=== PATIENT | female | born 1985 | race Caucasian/White ===

== ENCOUNTER 2017-07-15 18:37 | Emergency (ER) | payer OTHER ==
--- NOTE | 2017-07-15 18:45 | EDPHY ---
H & P Time Seen by Provider: 07/15/17 18:45 HPI/ROS: HPI CHIEF COMPLAINT: Right Knee pain. HISTORY OF PRESENT ILLNESS: Very pleasant 32 year old female, presents emergency room with right knee pain. Patient was playing volleyball last night around 9:00 p.m. And turned and heard a pop and had pain to the right lateral aspect of her knee. Since then she has had ongoing pain. She is able to bear weight. She denies any numbness or tingling or focal weakness. Denies any significant swelling. When she ranges her knee she has pain on the lateral aspect of her right knee. No clicking. Past Medical History: Denies medical history Past Surgical History: Denies surgical history Social History: Denies daily use drugs alcohol tobacco. Family History: Noncontributory ROS REVIEW OF SYSTEMS: A comprehensive 10 point review of systems is otherwise negative aside from elements mentioned in the history of present illness. Exam Constitutional triage nursing summary reviewed, vital signs reviewed, awake/ alert. Eyes normal conjunctivae and sclera, EOMI, PERRLA. HENT normal inspection, atraumatic, moist mucus membranes, no epistaxis, neck supple/ no meningismus, no raccoon eyes. Respiratory clear to auscultation bilaterally, normal breath sounds, no respiratory distress, no wheezing. Cardiovascular rate normal, regular rhythm, no murmur, no edema, distal pulses normal. Gastrointestinal soft, non-tender, no rebound, no guarding, normal bowel sounds, no distension, no pulsatile mass. Genitourinary no CVA tenderness. Musculoskeletal right lower extremity: The right lower extremity is neurovascularly intact good distal pulse good cap refill, she has range of motion of the right knee but has pain. She is most focally tender on the right lateral aspect of her right knee over her lateral collateral ligament and right lateral meniscus, no clicking, no significant swelling on exam, no midline vertebral tenderness, full range of motion, no calf swelling, no tenderness of extremities, no meningismus, good pulses, neurovascularly intact. Skin pink, warm, & dry, no rash, skin atraumatic. Neurologic awake, alert and oriented x 3, AAOx3, moves all 4 extremities equally, motor intact, sensory intact, CN II-XII intact, normal cerebellar, normal vision, normal speech. Psychiatric normal mood/affect. Heme/Lymph/Immune no lymphadenopathy. Differential Diagnosis: Includes but is not limited to in a particular order meniscal injury, lateral collateral ligament injury, bony abnormality, bony contusion, bony fracture. Medical Decision Making: Plan for this patient x-ray right knee, knee immobilizer crutches, anti-inflammatory pain medicine and ice recommend referral to Orthopedics. Re-evaluation: X-ray of the knee unremarkable for acute bony abnormality. Recommend patient follows up with Orthopedics. Knee immobilizer crutches for comfort and care. Ibuprofen, ice elevation. Most likely has a meniscal injury versus ligamentous injury. Recommend orthopedic follow-up. She understands. Source: Patient Constitutional: Initial Vital Signs Temperature (C) 36.7 C 07/15/17 18:52 Heart Rate 61 07/15/17 18:52 Respiratory Rate 20 07/15/17 18:52 Blood Pressure 137/94 H 07/15/17 18:52 O2 Sat (%) 97 07/15/17 18:52 O2 Delivery Mode Room Air Allergies/Adverse Reactions: No Known Allergies Allergy (Unverified 07/15/17 18:50) Home Medications: Medication Instructions Recorded Estrogen,Con/M-Progest Acet 07/15/17 [Premphase 0.625-5 mg Tablet] Medical Decision Making - Diagnostics Imaging Results: Imaging Impressions Knee X-Ray 07/15/17 18:57 Impression: Negative for fracture. - Data Points Medications Given: Discontinued Medications Ibuprofen (Motrin) 800 mg PO EDNOW ONE Stop: 07/15/17 18:58 Last Admin: 07/15/17 19:01 Dose: 800 mg Departure - Departure Disposition: Home, Routine, Self-Care Clinical Impression: Right knee sprain Qualifiers: Encounter type: initial encounter Involved ligament of knee: unspecified ligament Qualified Code(s): S83.91XA - Sprain of unspecified site of right knee , initial encounter Condition: Good Instructions: Knee Sprain (ED) Additional Instructions: 1. Ice your knee 2. Elevate your leg. 3. Follow up and call for appointment with Orthopaedics. 4. Knee immobilizer/crutches for support. 5. Anti-inflammatory pain medicine. Referrals: SANTO MCKEON [Primary Care Provider] - As per Instructions Christopher Colorado MD [Medical Doctor] - As per Instructions
[2017-07-15] MEDS ORDERED: IBUPROFEN 800 MG TAB PO ONE (18:57)
[2017-07-15 19:46] VITALS: BP 128/80
== END 2017-07-15 19:47 | disposition home or self-care (01) ==
LOC: CED 18:37
DX: S83.91XA Sprain of unspecified site of right knee, initial encounter (principal); X58.XXXA Exposure to other specified factors, initial encounter; Y99.8 Other external cause status; Y93.68 Activity, volleyball (beach) (court)
CPT/HCPCS: 73564-PO; L1830